=== PATIENT | male | born 1980 | race Caucasian/White ===

== ENCOUNTER → 2017-09-03 12:01 | Outpatient (CLI) | payer BC, SELFPAY | PROVIDERS: Family Provider Family Medicine; PCP Family Medicine; Visit Provider Family Medicine | DX: F41.9 Anxiety disorder, unspecified (principal) | CPT/HCPCS: 36415; 84403 ==

== ENCOUNTER → 2021-03-17 14:07 | Outpatient (CLI) | payer OTHER, SELFPAY | PROVIDERS: PCP Family Medicine; Referring Provider Family Medicine; Visit Provider Family Medicine | DX: L98.9 Disorder of the skin and subcutaneous tissue, unspecified (principal) | CPT/HCPCS: 36415 ==

== ENCOUNTER → 2021-05-07 16:45 | Outpatient (CLI) | payer OTHER, SELFPAY ==
[2021-05-07 17:56] LABS: Absolute Neutrophil Count 3.9 X10^3/uL (2.0-7.7); Basophil# 0.06 X10^3/uL; Basophil% 0.8 % (0-1); Eosinophil# 0.17 X10^3/uL; Eosinophils% 2.3 % (0-5); Hematocrit 46.1 % (40-54); Hemoglobin 15.9 g/dL (13.0-16.5); Lymphocyte % 35.5 % (19-41); Mean Corp Hgb Conc 34.5 g/dL (32-36); Mean Corpuscular Hgb 29.4 pg (27.0-32.0); Mean Corpuscular Volume 85.4 fL (80-94); Mean Platelet Vol. 9.5 fl (6.2-12.0); Monocyte# 0.55 X10^3/uL; Monocyte% 7.5 % (0-10); NRBC Flagged by Analyzer 0 % (0-5); Neutrophil # 3.93 X10^3/uL (2.7-7.7); Neutrophil % 53.6 % (47-70); Platelet Count 298 K/mm3 (150-450); RBC Distribution Width CV 12.3 % (11.6-14.6); RBC Distribution Width SD 38.5 fl (35.1-43.9); White Blood Count 7.3 K/mm3 (4.4-11.0)
[2021-05-07 18:51] LABS: ALB/GLOB Ratio 1.4 RATIO (0.9-2.4); AST(SGOT) 35 U/L (15-37); Alanine Aminotransfer ALT/SGPT 82 U/L (16-61); Albumin, Serum 4.2 g/dL (3.2-5.0); Alkaline Phosphatase 73 U/L (45-117); Anion Gap 8 (5-15); BUN 14 mg/dL (7-18); BUN/Creat Ratio 13.9 RATIO (10-20); Calcium,Total 8.8 mg/dL (8.5-10.1); Chloride 104 mmol/L (98-107); Creatinine, Serum 1.01 mg/dL (0.70-1.30); EST Glomerular Filtration Rate 87 mL/min (>60); Est Glom Filt Rate - Afr Amer 105 mL/min (>60); Globulin 3.1 g/dL (2.2-4.2); Glucose 91 mg/dL (74-106); Potassium 3.8 mmol/L (3.5-5.1); Protein, Total 7.3 g/dL (6.4-8.2); Sodium Level 140 mmol/L (136-145); Thyroid Stim Hormone (TSH) 1.53 uIU/mL (0.358-3.74)
== END ==
PROVIDERS: PCP Family Medicine; Referring Provider Family Medicine; Visit Provider Family Medicine
DX: R53.81 Other malaise (principal)
CPT/HCPCS: 36415; 80053; 84403; 84443; 85025

== ENCOUNTER 2022-06-20 09:54 | Emergency (ER) | payer OTHER, SELFPAY ==
[2022-06-20 09:55] VITALS: BP 162/98; PULSE 75; RESP 17; TEMP 36.1; O2SAT 100; BMI 31.2
--- NOTE | 2022-06-20 10:10 | CT_ITS ---
STUDY: CT RIGHT FOOT REASON FOR EXAM: Male, 41 years old. Pain and swelling RADIATION DOSAGE (If Supplied By Facility): CTDIvol = ( 15.35 ) mGy, DLP = ( 434.36 ) mGycm TECHNIQUE: Thin section transaxial imaging of the foot was obtained, with sagittal and coronal reconstructed images. 100 mL Isovue 370 contrast administered Individualized dose optimization techniques were used for this CT. COMPARISON: None. FINDINGS: There is diffuse induration of the subcutaneous fat predominantly in the dorsal of the ankle and foot with associated fluid. Findings suggest a generalized inflammatory process such as cellulitis. Between the phalanges of the third and fourth toes, there is a subcutaneous well-defined fluid collection measuring approximately 0.91 x 0.63 cm consistent with an abscess, this is best seen on axial images 73 through 81, series 2 Normal talus, calcaneus, and tarsal bones. Normal visualized tibiotalar, subtalar, talonavicular, calcaneocuboid, tarsal and tarsometatarsal articulations. Normal metatarsi. Normal metatarsophalangeal joint of the great toe. Normal tibial and fibular sesamoid bones. Normal interphalangeal joint of the great toe. Normal phalanges of the great toe. Normal second through fifth metatarsophalangeal joints. Normal interphalangeal joints and phalanges of the lesser toes. CT/Extremity Lower WITH Contrast IMPRESSION: There is an organized peripherally enhancing fluid collection projecting between the third and fourth toes on the images described above consistent with a subcutaneous abscess. Diffuse induration of the subcutaneous fat in the dorsum of the foot with associated fluid consistent with cellulitis No demonstrated fracture or suspicious osseous lesion Electronically Signed: Ousmane Tracey MD at 11:49 EST ,
--- NOTE | 2022-06-20 10:13 | EDS_ITS ---
HPI History of Present Illness Chief Complaint: Cellulitis Informant: patient Onset/Context/Timing Onset: Days (4 days) Narrative Narrative: Patient presents secondary to cellulitis in his right foot. He states he started noticing pain in his right foot Wednesday evening. He had some redness and swelling. He was seen at the [place] on Wednesday and diagnosed with cellulitis. He was started on Bactrim. He has been on Bactrim for 48 hours. Patient states this morning his foot was quite swollen and more painful. He was having difficulty ambulating. He states that an area opened up between his third and fourth toes and started draining this morning. He does report a history of athletes feet and states he gets fissures. He has not noted a fever. [facility] Medical History Anxiety Home Medications naproxen 500 mg tablet 500 mg PO BID #20 tabs 02/16/15 [Rx Last Taken Unknown] duloxetine 60 mg capsule,delayed release 60 mg PO DAILY 04/11/21 [History Last Taken Unknown] cephalexin 500 mg capsule 500 mg PO Q6 #40 CAPSULES 06/20/22 [Rx Last Taken Unknown] hydrocodone-acetaminophen 5-325mg 5mg-325mg 1 tab PO Q6H PRN PRN Pain 3 days #10 TABLETS 06/20/22 [Rx Last Taken Unknown] terbinafine HCl 250 mg tablet 250 mg PO DAILY #7 tabs 06/20/22 [Rx Last Taken Unknown] Allergy/AdvReac Type Severity Reaction Status Date / Time No Known Allergies Allergy Verified 06/20/22 09:54 Social History Smoking Status: Current every day smoker tobacco type: cigarettes Smokeless tobacco user: chewing tobacco alcohol intake: current alcohol intake frequency: a few times a month ROS ROS ED Constitutional Constitutional ED: Denies chills or fever(s) Eyes Eyes: Denies change in vision or discharge from eye(s) ENT ENT ED: Denies discharge from eye(s), rhinorrhea or sore throat Cardiovascular Cardiovascular: Denies chest pain Respiratory/Chest Respiratory/Chest: Denies cough or dyspnea Gastrointestinal Gastrointestinal: Denies abdominal pain, nausea or vomiting Musculoskeletal Musculoskeletal: Reports extremity pain; Denies back pain Integumentary Reports abscess and other Details: Cellulitis ; Denies Abrasions or rash Neurologic Neurologic: Denies headache(s) or weakness Psychiatric Psychiatric: Denies anxiety or depression Allergic/Immunologic Allergic/Immunologic ED: Denies lip swelling or urticaria EXAM Physical Exam Const Vital Signs: 06/20/22 09:55 Temperature 96.9 F L Temperature Source Temporal Pulse Rate 75 Respiratory Rate 17 Blood Pressure 162/98 H Blood Pressure Mean 119 Pulse Ox 100 Oxygen Delivery Method Room Air Positive well nourished and well developed General Appearance ED: well developed HEENT Reports normocephalic and head/scalp atraumatic Eyes PERRL and EOMs intact bilaterally Neck supple Chest Wall inspection of chest normal and palpation of chest normal Resp normal respiratory effort and clear to auscultation bilaterally Cardio regular rate and regular rhythm GI normal to inspection, nondistended, normoactive bowel sounds Palpation: soft Extremity Extremity Narrative: Edema to the distal half of the right foot. Cracked skin is noted between the third and fourth toes with bloody discharge. Area around the third and fourth distal metatarsals is firm. No tenderness over the calcaneus or calf. Neuro oriented x3 and no sensory deficits noted Sensorium / Orientation: alert Psych mental status grossly normal Skin Skin Narrative: Right foot findings as noted above. MDM MDM MDM Narrative Medical decision making narrative: Patient initially ordered morphine and Zofran for pain which he declined. Patient is given a dose of IV vancomycin. Lab work obtained along with blood cultures. Wound culture obtained. Due to concern for abscess in the foot a CT scan of the foot with IV contrast is ordered. Lab Data Attestation: I reviewed the patient's lab results. Labs: Laboratory Results - last 24 hr 06/20/22 06/20/22 10:19 10:19 WBC 8.8 RBC 5.54 Hgb 15.6 Hct 47.8 MCV 86.3 MCH 28.2 MCHC 32.6 RDW Std Deviation 39.3 RDW Coeff of Samantha 12.4 Plt Count 280 MPV 9.2 Immature Gran % (Auto) 0.300 Neut % (Auto) 66.3 Lymph % (Auto) 23.3 [place] % (Auto) 7.7 Eos % (Auto) 1.8 Baso % (Auto) 0.6 Absolute Neuts (auto) 5.8 Absolute Lymphs (auto) 2.05 Nucleated RBC % 0 Sodium 139 Potassium 4.4 Chloride 107 Carbon Dioxide 27.0 Anion Gap 5 BUN 16 Creatinine 1.21 Estim Creat Clear Calc 82.95 Est GFR (MDRD) Af Amer 85 Est GFR (MDRD) Non-Af 70 BUN/Creatinine Ratio 13.2 Glucose 102 Calcium 8.9 Radiography Diagnostic Testing: Clinical Impression(s) from Imaging Studies Lower Extremity CT 06/20/22 10:10 IMPRESSION: There is an organized peripherally enhancing fluid collection projecting between the third and fourth toes on the images described above consistent with a subcutaneous abscess. Diffuse induration of the subcutaneous fat in the dorsum of the foot with associated fluid consistent with cellulitis No demonstrated fracture or suspicious osseous lesion Electronically Signed: Ousmane Tracey MD at 11:49 EST , Treatment and Re-Evaluation Narrative: CBC and chemistry studies are unremarkable. Blood and wound cultures have been sent. CT scan of the foot reveals a fluid collection projecting between the third and fourth toes consistent with an abscess. I spoke with Dr. Yap, on-call for podiatry. He presented to the emergency room and evaluated the patient. He will perform a bedside I&D. The patient wishes to go home following this. He will continue his Bactrim but we will also add Keflex. Patient will also be given terbinafine for the athlete's foot. I will write him a short course of [place] for pain control. Discharge Plan Triage Chief Complaint: Cellulitis ED Provider: Mayelin Ewing Dx/Rx/DC Orders Clinical Impression: Abscess, Infection of right foot Instructions: ED Abscess Incision And Drainage, ED Cellulitis Prescriptions: New terbinafine HCl 250 mg tablet 250 mg PO DAILY Qty: 7 0RF cephalexin 500 mg capsule 500 mg PO Q6 Qty: 40 0RF hydrocodone-acetaminophen 5-325 mg tablet 1 tab PO Q6H PRN PRN (Reason: Pain) 3 Days Qty: 10 0RF No Action duloxetine 60 mg capsule,delayed release(DR/EC) 60 mg PO DAILY naproxen 500 MG tablet 500 mg PO BID Qty: 20 0RF Primary Care Provider: Rebecca Hodge Referrals: Rebecca Hodge MD [Primary Care Provider] - Juan Jose David DPM [Med Staff - Active Staff] - 1 Week Disposition Disposition: Home, Self Care
[2022-06-20 10:35] LABS: Absolute Lymphocyte Count 2.05 X10^3/uL (0.83-4.51); Absolute Neutrophil Count 5.8 X10^3/uL (2.0-7.7); Basophil# 0.05 X10^3/uL; Basophil% 0.6 % (0-1); Eosinophil# 0.16 X10^3/uL; Eosinophils% 1.8 % (0-5); Hematocrit 47.8 % (40-54); Hemoglobin 15.6 g/dL (13.0-16.5); Lymphocyte # 2.05 X10^3/ul (0.83-4.51); Lymphocyte % 23.3 % (19-41); Mean Corp Hgb Conc 32.6 g/dL (32-36); Mean Corpuscular Hgb 28.2 pg (27.0-32.0); Mean Corpuscular Volume 86.3 fL (80-94); Mean Platelet Vol. 9.2 fl (6.2-12.0); Monocyte# 0.68 X10^3/uL; Monocyte% 7.7 % (0-10); NRBC Flagged by Analyzer 0 % (0-5); Neutrophil # 5.81 X10^3/uL (2.7-7.7); Neutrophil % 66.3 % (47-70); Platelet Count 280 K/mm3 (150-450); RBC Distribution Width CV 12.4 % (11.6-14.6); RBC Distribution Width SD 39.3 fl (35.1-43.9); Red Blood Count 5.54 M/mm3 (4.6-6.2); White Blood Count 8.8 K/mm3 (4.4-11.0)
[2022-06-20] MEDS: 0.9% Normal Saline 1,000 ML 150 ML IV (10:47)
[2022-06-20 10:56] LABS: Anion Gap 5 (5-15); BUN 16 mg/dL (7-18); BUN/Creat Ratio 13.2 RATIO (10-20); Calcium,Total 8.9 mg/dL (8.5-10.1); Chloride 107 mmol/L (98-107); Creatinine, Serum 1.21 mg/dL (0.70-1.30); EST Glomerular Filtration Rate 70 mL/min (>60); Est Glom Filt Rate - Afr Amer 85 mL/min (>60); Estimated Creatinine Clearance 82.95 ml/min; Glucose 102 mg/dL (74-106); Potassium 4.4 mmol/L (3.5-5.1); Sodium Level 139 mmol/L (136-145)
[2022-06-20] MEDS: Morphine 4 MG/ML Syringe IV (14:04)
[2022-06-20] MEDS: Lidocaine 1% (20 ml mdv) 20 ML Vial INFILT (14:04)
[2022-06-20] MEDS: Ondansetron 4 MG/2 ML Vial IV (14:04)
--- NOTE | 2022-06-20 14:53 | PCM.CONS.GEN ---
Assessment & Plan Assessment/Plan (1) Pain in right foot: (2) Abscess: (3) Tinea pedis: PLAN: Plan Evaluation performed. Reviewed diagnostic data. Discussed options with patient in detail. I spoke with Dr. Ewing, ER physician. Patient is going to remain on oral Bactrim, add Keflex and also terbinafine. We discussed I+D with debridement right foot abscess. This was discussed with patient in detail. Reviewed the rationale of this, as well as the possible benefits vs risks, goals, expectations and estimated healing time. The consent form was reviewed with him. He freely signed it. No guarantees were given nor implied. No warranties were given. After consent was obtained, the skin was cleansed with 70% Isopropyl alcohol. A total of 10mL of 1% Lidocaine plain was given to the 3rd IM space around the infection area. After anesthesia was obtained the skin was further cleansed with 70% Isopropyl alcohol, an incision was made to the abscess site dorsal 3rd IM space. There was purulence immediately which poured out, the site was cultured and sent to microbiology. The abscess was drained, and the loculations were broken up with a hemostat. The abscess was localized to the area. It was milked of all purulence. There was no probe to bone or joint. The site was cleansed with normal saline solution. The remaining tissues were healthy and viable. The site was packed with gauze packing and dry gauze dressing applied. He tolerated well with no complications. EBL was 1-2 mL. Post care instructions were given - change dressing daily using normal saline solution and soap and then pack with gauze packing and apply overlying gauze dressing. Otherwise do not get wet. Rest and elevate foot. Follow up in office next Wednesday, sooner if needed. HPI Consult Data Date of Consult: 06/20/22 HPI Narrative Reason for Consultation: Right foot infection HPI Narrative: CHRISTOPH AGUSTIN, is a 41 M who presents to ER for right foot swelling, pain and redness. He relates symptoms have been worsening [facility] He relates he has taken several days off from work. He relates to hx of athletes foot. He has drainage from in between the 3rd and 4th toes on the right foot. CT scan was obtained and there is an abscess present to the site. He is resting in bed with significant other at bedside. PFSH Medical History Anxiety Home Medications naproxen 500 mg tablet 500 mg PO BID #20 tabs 02/16/15 [Rx Last Taken Unknown] duloxetine 60 mg capsule,delayed release 60 mg PO DAILY 04/11/21 [History Last Taken Unknown] cephalexin 500 mg capsule 500 mg PO Q6 #40 CAPSULES 06/20/22 [Rx Last Taken Unknown] hydrocodone-acetaminophen 5-325mg 5mg-325mg 1 tab PO Q6H PRN PRN Pain 3 days #10 TABLETS 06/20/22 [Rx Last Taken Unknown] terbinafine HCl 250 mg tablet 250 mg PO DAILY #7 tabs 06/20/22 [Rx Last Taken Unknown] Allergy/AdvReac Type Severity Reaction Status Date / Time No Known Allergies Allergy Verified 06/20/22 09:54 Social History Smoking Status: Current every day smoker tobacco type: cigarettes Smokeless tobacco user: chewing tobacco alcohol intake: current alcohol intake frequency: a few times a month Physical Exam Const alert, oriented x3 and no apparent distress Constitutional Narrative: There is noted to be cellulitis to the forefot foot coming from 3rd IM space right foot with abscess, drainage and swelling, there is pain to the site, there is maceration tot he site as well, there is no proximal streaking, no maloder; no other open lesions. No open lesions left foot. CFT < 2 seconds to all toes bilateral. No edema left. Sensation intact to light touch bilateral. Muscle strength and mass normal bilateral. Lab / Micro Data Result Diagrams: 06/20/22 10:19 06/20/22 10:19 Labs: Laboratory Results - last 24 hr 06/20/22 10:19: WBC 8.8, RBC 5.54, Hgb 15.6, Hct 47.8, MCV 86.3, MCH 28.2, MCHC 32.6, RDW Std Deviation 39.3, RDW Coeff of Samantha 12.4, Plt Count 280, MPV 9.2, Immature Gran % (Auto) 0.300, Neut % (Auto) 66.3, Lymph % (Auto) 23.3, [place] % (Auto) 7.7, Eos % (Auto) 1.8, Baso % (Auto) 0.6, Absolute Neuts (auto) 5.8, Absolute Lymphs (auto) 2.05, Nucleated RBC % 0 06/20/22 10:19: Sodium 139, Potassium 4.4, Chloride 107, Carbon Dioxide 27.0, Anion Gap 5, BUN 16, Creatinine 1.21, Estim Creat Clear Calc 82.95, Est GFR (MDRD) Af Amer 85, Est GFR (MDRD) Non-Af 70, BUN/Creatinine Ratio 13.2, Glucose 102, Calcium 8.9 Radiology Impression Lower Extremity CT 06/20/22 10:10 IMPRESSION: There is an organized peripherally enhancing fluid collection projecting between the third and fourth toes on the images described above consistent with a subcutaneous abscess. Diffuse induration of the subcutaneous fat in the dorsum of the foot with associated fluid consistent with cellulitis No demonstrated fracture or suspicious osseous lesion Electronically Signed: Ousmane Tracey MD at 11:49 EST ,
== END 2022-06-20 14:56 | disposition home or self-care (01) ==
PROVIDERS: Emergency Provider Emergency Medicine; PCP Family Medicine; Visit Provider Emergency Medicine
DX: L02.611 Cutaneous abscess of right foot (principal); F17.210 Nicotine dependence, cigarettes, uncomplicated
CPT/HCPCS: 36415; 73701; 80048; 85025; 87040; 87070; 87077; 87186; 87205; 96365; 96366; 96375; 99284; J7030; J7040; Q9967; A4216; J2405

== ENCOUNTER → 2022-07-25 | Outpatient (CLI) | payer OTHER, SELFPAY ==
--- NOTE | 2022-07-25 07:45 | US_ITS ---
EXAM: US ABDOMEN LIMITED, RIGHT UPPER QUADRANT CLINICAL INDICATION: LFTS TECHNIQUE: Real-time ultrasound of the right upper quadrant with image documentation. This report was created using [employer] report generation technology. COMPARISON: None. FINDINGS: LIVER: The liver measures 18.3 cm in length. There is normal echotexture. No intrahepatic biliary ductal dilation. GALLBLADDER: The gallbladder wall measures 2 mm. No shadowing gallstone. No pericholecystic fluid. Negative sonographic Romo''s sign. COMMON BILE DUCT: Common bile duct measures 3 mm. The proximal common bile duct is within normal limits for the patient''s age. PANCREAS: Unremarkable as visualized. No focal abnormality is demonstrated in the pancreas. No pancreatic ductal dilatation. RIGHT KIDNEY: The right kidney measures 11.9 x 4.7 x 5.2 cm. The right renal cortex measures 1.7 cm. There is no hydronephrosis. No shadowing calculus. No focal lesion or perinephric collection is demonstrated. US/Abdomen Limited IMPRESSION: No acute findings in the right upper quadrant. Electronically Signed: Kt Burdick MD at 23:59 EST ,
== END | disposition home or self-care (01) ==
LOC: US 07:43
PROVIDERS: PCP Family Medicine
DX: R79.89 Other specified abnormal findings of blood chemistry (principal)
CPT/HCPCS: 76705

== ENCOUNTER 2023-08-05 13:47 | Emergency (ER) | payer OTHER, SELFPAY ==
[2023-08-05 13:48] VITALS: BP 135/106; PULSE 74; RESP 11; TEMP 36.6; O2SAT 97; BMI 31.2
--- NOTE | 2023-08-05 15:26 | EX.ED.GENINJ ---
HPI <SHMUEL Chung - Last Filed: 08/05/23 17:20> History of Present Illness Chief Complaint: Laceration Narrative Narrative: Patient presenting today with a laceration to his left third and fourth fingers that he got today at work. He reports that he was working with a metal machine and accidentally got his hand stuck inside causing a laceration. He is unsure of his last tetanus update. He is not on any blood thinners. He denies any other injury. Tetanus Immunization: Unknown [facility] <SHMUEL Chung - Last Filed: 08/05/23 17:20> [facility] Medical History Anxiety Home Medications naproxen 500 mg tablet 500 mg PO BID #20 tabs 02/16/15 [Rx Last Taken Unknown] duloxetine 60 mg capsule,delayed release 60 mg PO DAILY 04/11/21 [History Last Taken Unknown] cephalexin 500 mg capsule 500 mg PO Q6 #40 CAPSULES 06/20/22 [Rx Last Taken Unknown] hydrocodone-acetaminophen 5-325mg 5mg-325mg 1 tab PO Q6H PRN PRN Pain 3 days #10 TABLETS 06/20/22 [Rx Last Taken Unknown] terbinafine HCl 250 mg tablet 250 mg PO DAILY #7 tabs 06/20/22 [Rx Last Taken Unknown] Allergy/AdvReac Type Severity Reaction Status Date / Time No Known Allergies Allergy Verified 06/24/23 06:44 Social History Smoking Status: Current every day smoker tobacco type: smokeless tobacco Smokeless tobacco user: chewing tobacco alcohol intake: current alcohol intake frequency: a few times a month ROS <SHMUEL Chung - Last Filed: 08/05/23 17:20> ROS ED Constitutional Constitutional ED: Denies chills, fever(s) or sweats Cardiovascular Cardiovascular: Denies chest pain or palpitations Respiratory/Chest Respiratory/Chest: Denies cough or dyspnea Gastrointestinal Gastrointestinal: Denies abdominal pain, nausea or vomiting Musculoskeletal Musculoskeletal: Denies arthralgias or myalgias Integumentary Reports laceration EXAM <SHMUEL Chung - Last Filed: 08/05/23 17:20> Physical Exam Const Vital Signs: 08/05/23 13:48 08/05/23 15:48 08/05/23 16:24 Temperature 98 F 97.2 F L Temperature Source Temporal Pulse Rate 74 58 L 79 Respiratory Rate 11 L 16 16 Blood Pressure 135/106 H 128/110 H 156/100 H Blood Pressure Mean 115 116 118 Pulse Ox 97 96 99 Oxygen Delivery Method Room Air Room Air Positive well nourished, well developed and no apparent distress General Appearance ED: well developed HEENT Reports normocephalic and head/scalp atraumatic Mouth ED: Yes moist mucous membranes normal Eyes PERRL and EOMs intact bilaterally Neck full ROM and supple Chest Wall inspection of chest normal Resp normal respiratory effort and clear to auscultation bilaterally Cardio regular rate and regular rhythm GI soft to palpation, non-tender, non-distended and no masses Back/Spine normal ROM and normal to inspection Extremity full ROM Extremity Narrative: 1.5 cm linear full-thickness laceration to the palmar aspect of the left middle phalanx. 1 cm linear partial-thickness laceration to the dorsal aspect of the left fourth middle phalanx. Full flexion and extension at the MCP, PIP, DIP joints of the left hand. Neuro oriented x3, CN's II-XII intact bilaterally, moves all extremities, no focal motor deficits and no sensory deficits noted Sensorium / Orientation: awake and alert Psych mental status grossly normal and thought process normal Skin no rashes or lesions noted and no wounds <Dr. Aman Melgoza DO - Last Filed: 08/05/23 16:23> Physical Exam Const Vital Signs: 08/05/23 13:48 08/05/23 15:48 08/05/23 16:24 Temperature 98 F 97.2 F L Temperature Source Temporal Pulse Rate 74 58 L 79 Respiratory Rate 11 L 16 16 Blood Pressure 135/106 H 128/110 H 156/100 H Blood Pressure Mean 115 116 118 Pulse Ox 97 96 99 Oxygen Delivery Method Room Air Room Air PROC <SHMUEL Chung - Last Filed: 08/05/23 17:20> Procedures Lacerations Laceration: Length: 2.5 cm Depth: Sub Q Shape: Linear Laceration repair: Irrigated, Lidocaine and Wound explored Irrigated (ml): 200 Number of Sutures/Kenefic: 8 Suture Information: Ethilon and 5-0 Comment: 2 stitches to the left fourth finger, 4 to the L third finger [facility] <SHMUEL Chung - Last Filed: 08/05/23 17:20> [facility] Narrative Medical decision making narrative: Patient presenting today with a laceration to his left third and fourth fingers. No visualized tendon or bone. Wounds were copiously irrigated with normal saline and cleaned with chlorhexidine. Digital block to the left third and fourth fingers performed. Wounds were sutured. Bacitracin ointment and bandages were applied. Patient tolerated procedure well. Tetanus was updated. Wound care instructions discussed, he is to have stitches out in 10 days. He will be discharged home in stable condition and is comfortable with plan. <Dr. Aman Melgoza DO - Last Filed: 08/05/23 16:23> [facility] History & Record Review Discussion w/independent historian: Patient Treatment and Re-Evaluation Narrative: I have personally performed a face to face assessment of the patient and have reviewed the SUKHDEEP Note. I performed a substantive portion of the visit including all aspects of the following. My holland findings include: History is 42-year-old male working at [employer] brush sustained lacerations to the left ring and middle finger when he got it caught by a machine that he was trying to clear metal out of. Unknown last tetanus but believes about 10 years ago. He notes no weakness in the movement of the hand. Exam is no obvious flexor or extensor tendon injury is noted on functional exam. There is a full-thickness laceration over the dorsum of the left ring finger and on the volar aspect of the middle finger middle phalanx. Neurovascular intact. Please see PAs note but in short no tendon visualized or bone seen. Medical Decison Making wounds were locally anesthetized and explored by physician foundation assistant. They were washed irrigated and closed. Wound care discussed with patient. Discharge Plan Triage Chief Complaint: Laceration ED Midlevel Provider: Becky Murray ED Provider: Aman Melgoza Dx/Rx/DC Orders Clinical Impression: Laceration Instructions: ED Laceration, All Closures Prescriptions: No Action duloxetine 60 mg capsule,delayed release(DR/EC) 60 mg PO DAILY naproxen 500 MG tablet 500 mg PO BID Qty: 20 0RF terbinafine HCl 250 mg tablet 250 mg PO DAILY Qty: 7 0RF cephalexin 500 mg capsule 500 mg PO Q6 Qty: 40 0RF hydrocodone-acetaminophen 5-325 mg tablet 1 tab PO Q6H PRN PRN (Reason: Pain) 3 Days Qty: 10 0RF Primary Care Provider: Rebecca Hodge Referrals: Rebecca Hodge MD [Primary Care Provider] - 10 Day for suture removal Activity Restrictions/Additional Instructions: Keep area clean and covered. Return for any signs of infection. Have stitches removed in 10 days. Disposition Disposition: Home, Self Care Discharge Date/Time: 08/05/23 16:30
[2023-08-05 15:48] VITALS: BP 128/110; PULSE 58; RESP 16; O2SAT 96
[2023-08-05] MEDS: Diphth,Pertuss(Acell),Tet Vac 0.5 ML Vial IM (16:14)
[2023-08-05] MEDS: Lidocaine 1% (20 ml mdv) 20 ML Vial 10 ML INFILT (16:15)
[2023-08-05 16:24] VITALS: BP 156/100; PULSE 79; RESP 16; TEMP 36.2; O2SAT 99
== END 2023-08-05 16:30 | disposition home or self-care (01) ==
PROVIDERS: Emergency Provider Emergency Medicine; PCP Family Medicine; Visit Provider Emergency Medicine
DX: S61.215A Laceration without foreign body of left ring finger without damage to nail, initial encounter (principal); S61.213A Laceration without foreign body of left middle finger without damage to nail, initial encounter; F17.220 Nicotine dependence, chewing tobacco, uncomplicated; Z23 Encounter for immunization; X58.XXXA Exposure to other specified factors, initial encounter
CPT/HCPCS: 12001; 90471; 90715; 99282

== ENCOUNTER → 2023-08-16 | Outpatient (CLI) | payer OTHER, SELFPAY ==
--- NOTE | 2023-08-16 16:04 | RAD_ITS ---
STUDY: X-RAY - LEFT HAND, ATTENTION MIDDLE FINGER REASON FOR EXAM: Male, 42 years old. pain, swelling TECHNIQUE: 3 view(s) of the finger were obtained. COMPARISON: None. FINDINGS: There is a fracture through the proximal shaft of the third middle phalanx Minimal displacement. Minimal angulation. Moderate soft tissue swelling. No other definite abnormality. RAD/Finger(s) Min 2 Views IMPRESSION: Fracture through the proximal shaft of the third middle phalanx. Electronically Signed: Ming Ponce MD at 17:38 EDT ,
== END | disposition home or self-care (01) ==
PROVIDERS: PCP Family Medicine; Referring Provider Physician Assistant; Visit Provider Physician Assistant
DX: S61.512A Laceration without foreign body of left wrist, initial encounter (principal); S61.213A Laceration without foreign body of left middle finger without damage to nail, initial encounter
CPT/HCPCS: 73140

== ENCOUNTER 2024-07-21 07:00 | Emergency (ER) | payer OTHER, SELFPAY ==
[2024-07-21 07:02] VITALS: BP 149/95; PULSE 67; RESP 18; TEMP 36.7; O2SAT 98; BMI 31.8
--- NOTE | 2024-07-21 07:29 | EX.ED.DYSGE1 ---
HPI History of Present Illness Chief Complaint: Other, Pain/Inj Informant: patient Narrative Narrative: 43-year-old male presenting to the emergency room with a chief complaint of neck pain. Patient states several nights ago he developed pain in the left side of his neck. It is worse with movement. He wonders if he slept wrong. He states that last night he asked his to rub the area seemed very tight. He notes that there is [address] that caused more pain than others. Eventually during the night he is able to get to sleep but notes today that when he gets to a certain rotated left side bent left position it hurts significantly more. He spoke with a coworker who advised him to come to emergency for evaluation. He denies any radicular symptoms. No recent trauma. No paresthesias. No arm weakness. He denies fevers IVD immunosuppression. [facility] Medical History MRSA (methicillin resistant Staphylococcus aureus) Fracture of phalanx of left middle finger Displaced fracture of middle phalanx of left ring finger, initial encounter for open fracture Laceration of left middle finger Laceration of left ring finger Anxiety Home Medications ?Medication ?Instructions ?Recorded ?Last Taken ?Type doxycycline monohydrate 100 mg 100 mg PO BID #20 caps 08/16/23 Unknown Rx capsule buspirone 10 mg tablet 10 mg PO DAILY 08/17/23 Unknown History cholecalciferol (vitamin D3) 25 25 mcg PO DAILY 08/17/23 Unknown History mcg (1,000 unit) capsule prazosin 2 mg capsule 2 mg PO QHS 08/17/23 Unknown History venlafaxine 75 mg tablet 75 mg PO DAILY 08/17/23 Unknown History cyclobenzaprine 10 mg tablet 10 mg PO TID PRN Muscle Spasm #12 07/21/24 Unknown Rx TABLETS Allergy/AdvReac Type Severity Reaction Status Date / Time No Known Allergies Allergy Verified 07/21/24 07:02 Social History Smoking Status: Current every day smoker tobacco type: smokeless tobacco Smokeless tobacco user: chewing tobacco alcohol intake: current alcohol intake frequency: a few times a month ROS ROS ED Constitutional Constitutional ED: Denies chills, fever(s) or weight loss Eyes Eyes: Denies change in vision or diplopia ENT ENT ED: Denies ear pain, rhinorrhea or sore throat Cardiovascular Cardiovascular: Denies chest pain, orthopnea, palpitations or racing heartbeat Respiratory/Chest Respiratory/Chest: Denies cough, dyspnea or orthopnea Gastrointestinal Gastrointestinal: Denies abdominal pain, diarrhea, nausea or vomiting Genitourinary Genitourinary ED: Denies dysuria, hematuria or urinary frequency Musculoskeletal Musculoskeletal: Reports neck pain; Denies arthralgias or myalgias Integumentary Denies abscess or rash Neurologic Neurologic: Denies headache(s) or weakness Psychiatric Psychiatric: Denies anxiety, depression, suicidal ideation or suicidal thoughts Endocrine Endocrinology: Denies polydipsia, polyphagia or polyuria Allergic/Immunologic Allergic/Immunologic ED: Denies mouth swelling, tongue swelling or urticaria EXAM Physical Exam Narrative Exam Narrative: Well-appearing male sitting comfortably in the bed. Const Vital Signs: 07/21/24 07:02 07/21/24 07:14 Temperature 98.0 F Temperature Source Temporal Pulse Rate 67 Respiratory Rate 18 Respiratory Effort Normal Non-Labored Respiratory Pattern Normal Blood Pressure 149/95 H Blood Pressure Mean 113 Pulse Ox 98 Oxygen Delivery Method Room Air Positive well nourished and well developed General Appearance ED: well developed HEENT Reports normocephalic, head/scalp atraumatic and moist mucous membranes Eyes PERRL and EOMs intact bilaterally Neck no lymphadenopathy, supple and no JVD Neck Narrative: Patient has palpable muscle spasm of the paraspinal cervical musculature on the left. He tissue appears hyperemic with touch. There is focal tenderness around C4-C5 paraspinally. No midline tenderness. No bruits. Strong carotid upstroke. Resp normal respiratory effort and clear to auscultation bilaterally Cardio regular rate, regular rhythm and no murmurs GI normal to inspection, nondistended, normoactive bowel sounds and non-tender Palpation: soft Back/Spine no CVA tenderness and normal ROM Extremity normal to inspection General Extremety ED: Negative for edema General Extremity: Negative for edema Neuro oriented x3 and CN's II-XII intact bilaterally Sensorium / Orientation: alert Motor Exam: strength 5/5 throughout Deep Tendon Reflexes: Rt Triceps (C7): 2+, Lt Triceps (C7): 2+, Rt Biceps (C5, C6): 2+ and Lt Biceps (C5, C6): 2+ Psych mental status grossly normal Mood & Affect: Negative for depressed or tearful Skin no rashes or lesions noted and no wounds MDM MDM MDM Narrative Medical decision making narrative: Differential diagnosis includes but not limited to disc herniation myofascial strain muscular spasm somatic dysfunction joint disease neurovascular injury such as dissection I would recommend soft tissue massage heat gentle stretching muscle relaxation techniques all of which were discussed with patient. He has not had any cyclobenzaprine in the past. I think this is worth him trialing. I would also recommend ibuprofen 600 mg every 6 hours. I instructed the patient that this should take several more days to fully resolve. Should he develop any neurologic symptoms would recommend follow-up. He may discuss with chiropractor further evaluation if needed. At this point I think the patient can be discharged home with musculoskeletal neck pain. History & Record Review Discussion w/independent historian: Patient Discharge Plan Triage Chief Complaint: Other, Pain/Inj ED Provider: Aman Melgoza Dx/Rx/DC Orders Clinical Impression: Acute cervical myofascial strain, Cervical paraspinal muscle spasm Instructions: ED Neck Spasm, No Trauma Prescriptions: New cyclobenzaprine 10 mg tablet 10 mg PO TID PRN (Reason: Muscle Spasm) Qty: 12 0RF No Action doxycycline monohydrate 100 mg capsule 100 mg PO BID Qty: 20 0RF cholecalciferol (vitamin D3) 25 mcg (1,000 unit) capsule 25 mcg PO DAILY buspirone 10 mg tablet 10 mg PO DAILY prazosin 2 mg capsule 2 mg PO QHS venlafaxine 75 mg tablet 75 mg PO DAILY Primary Care Provider: Rebecca Hodge Referrals: Rebecca Hodge MD [Primary Care Provider] - As Needed Print Language: Irish Disposition Disposition: Home, Self Care
[2024-07-21 07:35] VITALS: BP 138/89; PULSE 64; RESP 16; TEMP 36.8; O2SAT 99
== END 2024-07-21 07:37 | disposition home or self-care (01) ==
PROVIDERS: Emergency Provider Emergency Medicine; PCP Family Medicine; Visit Provider Emergency Medicine
DX: S16.1XXA Strain of muscle, fascia and tendon at neck level, initial encounter (principal); M62.830 Muscle spasm of back; F41.9 Anxiety disorder, unspecified; Z79.899 Other long term (current) drug therapy; F17.220 Nicotine dependence, chewing tobacco, uncomplicated
CPT/HCPCS: 99282